=== PATIENT | female | born 1955 | race Caucasian/White ===

== ENCOUNTER 2020-08-25 05:07 | Day surgery (SDC) | payer OTHER ==
[2020-08-24 11:06] VITALS: BMI 24.0
[2020-08-25] MEDS ORDERED: LIDOCAINE HCL 2% JELLY 10 ML CARTRIDGE ONE (07:51)
[2020-08-25 09:28] VITALS: TEMP 97.7
[2020-08-25 09:36] VITALS: BP 151/72; PULSE 58
== END 2020-08-25 10:21 | disposition home or self-care (01) ==
LOC: JASU-ENDO 05:07
PROVIDERS: ATTEND Internal Medicine Gastroenterology
PROC: 0DJD8ZZ Inspection of Lower Intestinal Tract, Via Natural or Artificial Opening Endoscopic (ICD-10-PCS; principal; 2020-08-25 08:45)
DX: K64.4 Residual hemorrhoidal skin tags (principal)